=== PATIENT | female | born 1960 ===

== ENCOUNTER → 2024-12-26 16:30 | Outpatient (CLI) | payer OTHER, SELFPAY ==
--- NOTE | 2024-12-26 16:36 | DI.MRI.S_ITS ---
PROCEDURE: MR SHOULDER RT WO CON INDICATIONS: WEAKNESS in shoulder TECHNIQUE: Noncontrast oblique coronal T2 fast spin echo with fat saturation, oblique sagittal T1 spin echo and T2 fast spin echo with fat saturation, axial T1 spin echo and T2 fast spin echo with fat saturation through the shoulder. Five sequences. COMPARISON: None. FINDINGS: Image quality: Excellent. Some images are limited by patient motion, pulsation or other artifacts. Rotator cuff: Increased T2 weighted signal and thinning, tendinopathy with partial tear of the mid and distal supraspinatus tendon with a 5 mm area of myotendinous retraction on the articular surface. Associated moderate subacromial/subdeltoid bursal fluid. Moderate tendinopathy distal subscapularis. Infraspinatus is grossly normal without tear or retraction. Teres minor is normal. No significant muscular fatty atrophy. Bones and bursae: Moderate degenerative changes of the acromioclavicular joint with joint space narrowing, osteophytes, subchondral edema, increased joint space fluid and capsular hypertrophy. Type 2 laterally downsloping acromion. Decreased subacromial space measures up to 5 mm at its narrowest. Moderate degenerative changes of the glenohumeral joint with diffuse cartilaginous thinning of the humeral head and glenoid. 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 Increased T2 weighted signal and irregularity of the superior labrum from approximately 11 o'clock to 1 o'clock position may be related to degenerative changes less likely related to SLAP tear. Capsule and soft tissues: Biceps tendon is located within the biceps groove. Mild increased T2 weighted signal, tendinopathy of the biceps anchor without tear or retraction. IMPRESSION: Tendinopathy and partial tear distal supraspinatus. Tendinopathy distal subscapularis. Degenerative changes of the acromioclavicular and glenohumeral joints as discussed above. Mild tendinopathy biceps anchor. Dictated by: Escobar Rojas M.D. on 12/28/2024 at 22:24 Approved by: Escobar Rojas M.D. on 12/28/2024 at 23:21
== END ==
PROVIDERS: PCP Internal Medicine Geriatric Medicine; Referring Provider Orthopaedic Surgery; Visit Provider Orthopaedic Surgery
DX: M75.111 Incomplete rotator cuff tear or rupture of right shoulder, not specified as traumatic (principal); M75.41 Impingement syndrome of right shoulder; M67.921 Unspecified disorder of synovium and tendon, right upper arm; R29.898 Other symptoms and signs involving the musculoskeletal system
CPT/HCPCS: 73221